=== PATIENT | male | born 1980 | race Hispanic/Latino ===

== ENCOUNTER 2017-12-13 19:23 | Emergency (ER) | payer BC ==
[~2017-12-13] VITALS: Ht 157.5 cm; Wt 85.9 kg
[~2017-12-13 19:23] MED LIST: ANTIVERT25 MG PO; BUTALBITAL COM1 EAC1 PO; FLONASE16 G1 BOTH NARES; LIDODERM 5% P1 PATCH TD; MUCINEX D ER T1 EACH PO; PREDNISONE20 MG PO; VIBRAMYCIN100 MG PO; [UNRECOGNIZED DRUG - REMARK]
[2017-12-13] MEDS ORDERED: TAMIFLU75 MG PO (22:13)
[2017-12-13 22:40] VITALS: BP 147/97
== END 2017-12-13 22:41 | disposition home or self-care (01) ==
LOC: EME 19:23
DX: J11.1 Influenza due to unidentified influenza virus with other respiratory manifestations (principal); R10.9 Unspecified abdominal pain; R51 Headache
CPT/HCPCS: 71046; 99281; 99283